=== PATIENT | male | born 1995 | race Caucasian/White ===

== ENCOUNTER 2017-04-10 04:56 | Emergency (ER) | payer OTHER ==
[~2017-04-10] VITALS: Ht 177.8 cm; Wt 83.0 kg
[2017-04-10 04:58] VITALS: BP 135/71
[2017-04-10] MEDS ORDERED: LIDOCAINE 1%, 20ML ONE (05:16)
[2017-04-10] MEDS ORDERED: LIDOCAINE 1%, 20ML INFIL ONE (05:30)
[2017-04-10 08:32] LABS: DAU SCREEN DISCLAIMER
== END 2017-04-10 10:34 | disposition home or self-care (01) ==
LOC: ED 05:51
DX: S51.812A Laceration without foreign body of left forearm, initial encounter (principal); F43.0 Acute stress reaction; X78.1XXA Intentional self-harm by knife, initial encounter; Y93.89 Activity, other specified; Y99.8 Other external cause status; Y92.89 Other specified places as the place of occurrence of the external cause
CPT/HCPCS: 12002; 80307; 99283; J3490

== ENCOUNTER 2017-04-25 10:14 | Emergency (ER) | payer OTHER ==
[~2017-04-25] VITALS: Ht 180.3 cm; Wt 80.6 kg
[2017-04-25 10:18] VITALS: BP 117/73
== END 2017-04-25 10:55 | disposition home or self-care (01) ==
LOC: ED 10:43
DX: S51.812D Laceration without foreign body of left forearm, subsequent encounter (principal)
CPT/HCPCS: 99281

== ENCOUNTER 2017-05-06 19:37 | Emergency (ER) | payer OTHER ==
[~2017-05-06] VITALS: Ht 180.3 cm; Wt 79.2 kg
[2017-05-06 20:24] LABS: HEMATOCRIT 46.6 % (39.2-51.8); HEMOGLOBIN 15.9 g/dL (13.7-18.0); WHITE BLOOD COUNT 3.6 x10^3/uL (3.4-10)
[2017-05-06] MEDS ORDERED: SODIUM CHLORIDE FLUSH 10ML SYR IVF ONE (20:30)
[2017-05-06] MEDS ORDERED: ONDANSETRON 2MG/ML, 2ML IVPush ONE (20:30)
[2017-05-06] MEDS ORDERED: SODIUM CHLORIDE 0.9% 1,000ML IVBOLUS ONE (20:30)
[2017-05-06] MEDS ORDERED: ONDANSETRON 2MG/ML, 2ML ONE (20:40)
[2017-05-06 20:53] LABS: ASPARTATE AMINO TRANSFERASE 34 U/L (15-37); BLOOD UREA NITROGEN 9 mg/dL (7-18)
[2017-05-06 21:51] VITALS: BP 121/72
== END 2017-05-06 22:23 | disposition home or self-care (01) ==
LOC: ED 20:18
DX: A09 Infectious gastroenteritis and colitis, unspecified (principal)
CPT/HCPCS: 36415; 80053; 83690; 85025; 96361; 96374; 99285; J2405; J7030